=== PATIENT | male | born 1965 | race Two or more races ===

== ENCOUNTER 2022-08-04 07:12 | Outpatient (CLI) | payer OTHER ==
[2022-08-04] MEDS ORDERED: ATORVASTATIN CA40 MG (14:37)
[2022-08-04] MEDS ORDERED: CHILDREN'S ASPI81 MG (14:37)
[2022-08-04] MEDS ORDERED: FARXIGA10 MG ×2 (14:37→14:42)
[2022-08-04] MEDS ORDERED: JANUMET XR 50-1 EAC1 PO (14:37)
[2022-08-04] MEDS ORDERED: TENORMIN25 MG (14:37)
[2022-08-04] MEDS ORDERED: HUMALOG100 UNIT/2 (14:41)
[2022-08-04] MEDS ORDERED: LANTUS (14:41)
[2022-08-04] MEDS ORDERED: ZETIA10 MG (14:42)
[2022-08-04] MEDS ORDERED: COZAAR100 MG (14:43)
== END 2022-08-04 07:24 | disposition home or self-care (01) ==
LOC: RAD 07:12
PROVIDERS: ATTEND Surgery
DX: D37.5 Neoplasm of uncertain behavior of rectum (principal); D12.8 Benign neoplasm of rectum

== ENCOUNTER 2022-08-04 12:00 | Inpatient (IN) | payer OTHER ==
[2022-08-04] MEDS ORDERED: CHILDREN'S ASPI81 MG (14:37)
[2022-08-04] MEDS ORDERED: FARXIGA10 MG ×2 (14:37→14:42)
[2022-08-04] MEDS ORDERED: JANUMET XR 50-1 EAC1 PO (14:37)
[2022-08-04] MEDS ORDERED: ATORVASTATIN CA40 MG (14:37)
[2022-08-04] MEDS ORDERED: TENORMIN25 MG (14:37)
[2022-08-04] MEDS ORDERED: LANTUS (14:41)
[2022-08-04] MEDS ORDERED: HUMALOG100 UNIT/2 (14:41)
[2022-08-04] MEDS ORDERED: ZETIA10 MG (14:42)
[2022-08-04] MEDS ORDERED: COZAAR100 MG (14:43)
[2022-08-09] MEDS ORDERED: OMEGA-3 ACID ETH1 GM (08:06)
[2022-08-09] MEDS ORDERED: AMLODIPINE BESYL5 MG (08:06)
[2022-08-09] MEDS ORDERED: PROAIR HFA8.5 GM (08:06)
[2022-08-09] MEDS ORDERED: LANTUS SOL100 UNIT/1 (08:06)
[2022-08-09] MEDS ORDERED: LORAZEPAM1 MG (08:06)
[2022-08-09] MEDS ORDERED: MUCUS RELIEF D1 EAC1 (08:07)
[2022-08-09] MEDS ORDERED: MONTELUKAST SOD10 MG (08:07)
[2022-08-10] MEDS ORDERED: ULTRACET PO (08:24)
== END 2022-08-10 09:55 | disposition home or self-care (01) | DRG 395 ==
LOC: EDUNIT# 12:00 → SURH 08-09 05:43 → O/R 08-09 05:43 → SURH 08-09 09:49
PROVIDERS: ADMIT Surgery; ATTEND Surgery
PROC: 0DJD8ZZ Inspection of Lower Intestinal Tract, Via Natural or Artificial Opening Endoscopic (ICD-10-PCS; 2022-08-09)
PROC: 3E0T3BZ Introduction of Anesthetic Agent into Peripheral Nerves and Plexi, Percutaneous Approach (ICD-10-PCS; 2022-08-09)
PROC: 0DBP8ZZ Excision of Rectum, Via Natural or Artificial Opening Endoscopic (ICD-10-PCS; principal; 2022-08-09 15:00)
DX: D12.8 Benign neoplasm of rectum (principal); Z20.822 Contact with and (suspected) exposure to COVID-19